=== PATIENT | male | born 1945 | race Caucasian/White ===

== ENCOUNTER 2024-03-12 10:35 | Outpatient (CLI) | payer MEDICARE, BC, OTHER ==
[2024-03-12] MEDS ORDERED: Sodium Bicarbonate 2.5 MEQ/5 ML SDV ONE (11:25)
[2024-03-12 12:06] VITALS: BP 132/84; TEMP 98.2
== END 2024-03-12 12:58 | disposition home or self-care (01) ==
LOC: CSHRAD 10:35
PROVIDERS: ATTEND Neurological Surgery
DX: T84.428A Displacement of other internal orthopedic devices, implants and grafts, initial encounter (principal); M47.816 Spondylosis without myelopathy or radiculopathy, lumbar region; M48.061 Spinal stenosis, lumbar region without neurogenic claudication
CPT/HCPCS: 62284; 72132; 77003